=== PATIENT | female | born 1950 | race Caucasian/White ===

== ENCOUNTER 2022-08-29 13:20 | Inpatient (IN) | payer SELFPAY ==
[~2022-08-29] VITALS: Ht 154.9 cm; Wt 78.0 kg
--- NOTE | 2022-08-29 13:45 | NUR ---
BIBDAUGHTER C/O SOB X2HOUR WITH LEFT JAW PAIN (SWELLING NOTED) NO TRAUMA. AMBULATORY, PLACED IN BED, AAOX4, BREATHING EVEN AND UNLABORED SATURATING AT 96%RA.
--- NOTE | 2022-08-29 13:59 | NUR ---
MOVE SHEET SUBMITTED.
--- NOTE | 2022-08-29 14:24 | NUR ---
BLOOD DRAWN AND SWAB FOR COVID19 SENT TO LAB
[2022-08-29] MEDS ORDERED: NIFE10CA2 PO (14:39)
[2022-08-29 14:46] LABS: BASOPHILS % (AUTO) 0.3 % (0.0-2.0); EOSINOPHILS % (AUTO) 0.1 % (0.0-6.0); HEMATOCRIT 41 % (33-45); HEMOGLOBIN 13.5 g/dL (11.5-14.8); LYMPHOCYTES # (AUTO) 1.5 K/uL (0.8-4.8); LYMPHOCYTES % (AUTO) 15.2 % (20.0-44.0); MEAN CORPUSCULAR HGB CONC 33 g/dl (31.0-36.0); MEAN CORPUSCULAR VOLUME 86 fL (82-100); MONOCYTES # (AUTO) 0.9 K/uL (0.1-1.30); MONOCYTES % (AUTO) 8.6 % (2.0-12.0); NEUTROPHILS # (AUTO) 7.6 K/uL (1.8-8.9); NEUTROPHILS % (AUTO) 75.8 % (43.0-81.0); PLATELET COUNT (AUTO) 201 K/uL (150-450); RED BLOOD CELL COUNT(AUTO) 4.77 MIL/uL (4.0-5.2)
[2022-08-29] MEDS ORDERED: MORPHINE SULFATE INJ 2 MG/ML DISP.SYRIN IV ONE (15:00)
[2022-08-29] MEDS ORDERED: MORPHINE SULFATE INJ 2 MG/ML DISP.SYRIN ONE (15:02)
--- NOTE | 2022-08-29 15:17 | NUR ---
TROPONIN 422, DR CHEW MADE AWARE
--- NOTE | 2022-08-29 15:21 | NUR ---
PER DR CHEW, OK FOR PT TO BE TAKEN TO RADIOLOGY FOR CTA; RADIOLOGY MADE AWARE
--- NOTE | 2022-08-29 15:35 | NUR ---
PT TAKEN TO RADIOLOGY FOR CT
[2022-08-29] MEDS ORDERED: CT SWABBABLE VALVE TRANS SET 1 EA INFUS.SET MC ONE (15:37)
[2022-08-29] MEDS ORDERED: IOHEXOL-350 100 ML VIAL IV ONE (15:37)
[2022-08-29] MEDS ORDERED: IV NS 0.9% 250 ML IV ONE (15:37)
[2022-08-29 15:42] LABS: ALANINE AMINOTRANSFERASE 19 U/L (12-78); ALBUMIN 3.9 g/dL (3.4-5.0); ALKALINE PHOSPHATASE 64 U/L (46-116); ASPARTATE AMINOTRANSFERASE 18 U/L (15-37); BILIRUBIN,DIRECT 0.2 mg/dL (0.0-0.2); BILIRUBIN,TOTAL 0.7 mg/dL (0.2-1.0); CALCIUM, SERUM 9.4 mg/dL (8.5-10.1); CARBON DIOXIDE 27 mmol/L (21-32); CHLORIDE 104 mmol/L (98-107); CREATININE 0.8 mg/dL (0.6-1.3); GLUCOSE 90 mg/dL (74-106); POTASSIUM 3.5 mmol/L (3.5-5.1); SODIUM SERUM 140 mmol/L (136-145); TOTAL PROTEIN, SERUM 7.9 g/dL (6.4-8.2); UREA NITROGEN, BLOOD 17 mg/dL (7-18)
[2022-08-29] MEDS ORDERED: ENOXAPARIN SODIUM 60 MG/0.6 ML DISP.SYRIN SQ ONE (16:30)
[2022-08-29] MEDS ORDERED: ASPIRIN 325 MG TABLET PO ONE (16:30)
--- NOTE | 2022-08-29 16:45 | NUR ---
[facility] CALLED ON [facility].
[2022-08-29] MEDS ORDERED: ASPIRIN 325 MG TABLET ONE ×2 (16:58→16:59)
[2022-08-29] MEDS ORDERED: NIFEdipine (10MG) 10 MG CAPSULE PO ONE ×2 (16:58→17:00)
[2022-08-29] MEDS ORDERED: ENOXAPARIN SODIUM 80 MG/0.8 ML DISP.SYRIN SQ ONE ×2 (16:58→17:00)
[2022-08-29] MEDS ORDERED: NITROGLYCERIN 0.4 MG/TAB BOTTLE ONE (16:58)
[2022-08-29] MEDS ORDERED: NITROGLYCERIN 0.4 MG/TAB BOTTLE SL ONE (17:00)
--- NOTE | 2022-08-29 17:07 | NUR ---
GOT BED 322-1
--- NOTE | 2022-08-29 17:22 | NUR ---
REPORT GIVEN TO ELENI SURESH ROOM 322-1 FOR AVA
[2022-08-29] MEDS ORDERED: MORPHINE SULFATE INJ 4 MG/ML DISP.SYRIN IV PRN (17:30)
[2022-08-29] MEDS ORDERED: ONDANSETRON HCL/PF 4 MG/2 ML VIAL IVP PRN (17:30)
[2022-08-29] MEDS ORDERED: ACETAMINOPHEN 325 MG TABLET PO PRN (17:30)
[2022-08-29] MEDS ORDERED: MAG HYDROX/AL HYDROX/SIMETH 30 ML UDC PO PRN (17:30)
[2022-08-29] MEDS ORDERED: HYDROCODONE/APAP 5/325MG TABLET PO PRN (17:30)
[2022-08-29] MEDS ORDERED: Z GUARD REMEDY 4 OZ OINT TP PRN (17:30)
[2022-08-29] MEDS ORDERED: TEMAZEPAM 15 MG CAPSULE PO PRN (17:30)
[2022-08-29] MEDS ORDERED: MAGNESIUM HYDROXIDE 30 ML UDC PO PRN (17:30)
[2022-08-29] MEDS: IV NS 0.9% 1,000 ML IV PRN (18:10)
[2022-08-29 18:15] VITALS: BP 138/79
--- NOTE | 2022-08-29 18:15 | NUR ---
RN NOTES RECEIVED PATIENT FROM ER ENDORSED BY KERWIN MARTINEZ VIA STRETCHER. PATIENT IS AWAKE AND A/O X4. ON O2 AT 2LPM VIA NASAL CANNULA TOLERATING WELL. NO SOB NOTED. NOT IN DISTRESS. ON TELE MONITOR CURRENTLY READING SINUS TACHYCARDIA AT 102BPM WITH PACs. WITH IV ACCESS AT THE LEFT AC G20 AND STARTED IVF NS AT 75ML/HR INFUSING WELL. SKIN IS INTACT. SAFETY MEASURES IN PLACED. CALL LIGHT WITHIN REACH. BED ON LOWEST LOCKED POSITION, SIDE RAILS UP X2. WILL ENDORSE TO NEXT SHIFT FOR AVA..
[2022-08-29] MEDS ORDERED: CEFEPIME 1 GM in IV D5W 50 ML IV SCH (19:30)
--- NOTE | 2022-08-29 19:49 | NUR ---
RN OPENING NOTES RECEIVED PT IN BED, AWAKE, ON CELL PHONE. AOx4, PER REPORT. AZERBAIJANI SPEAKING. ON RA AND TOLERATING WELL. NO SOB NOTED. NO S/SX OF RESPIRATORY DISTRESS NOTED. IV ACCESS IN LAC #20G RUNNING NS @75 ML/HR. SAFETY PRECAUTIONS IN PLACE: BED IN LOWEST, LOCKED POSITION, SIDERAILS UPx2, AND BRAKES ON. TABLE AND CALL LIGHT WITHIN REACH. ALL NEEDS MET AT THIS TIME.
[2022-08-29 20:00] VITALS: BP 109/75
[2022-08-29] MEDS ORDERED: CLINDAMYCIN PHOSPHATE IV 600 MG/4 ML VIAL IV SCH (21:00)
[2022-08-29] MEDS: CEFEPIME 2 GM in IV D5W 100 ML IV SCH (21:05)
--- NOTE | 2022-08-29 21:10 | NUR ---
RN NOTES ADMINISTERED MORPHINE FOR PAIN PER PT REQUEST. ASSESSED VIA FLACC SCALE 03/23. VS WNL.
[2022-08-29] MEDS: CLINDAMYCIN 600 MG in IV D5W 50 ML IV SCH (21:59)
[2022-08-30] VITALS: BP 121/63
[2022-08-30 04:00] VITALS: BP 149/76
[2022-08-30] MEDS: IV NS 0.9% 1,000 ML IV PRN (05:05)
[2022-08-30] MEDS: CLINDAMYCIN 600 MG in IV D5W 50 ML IV SCH (05:05)
--- NOTE | 2022-08-30 06:34 | NUR ---
RN CLOSING NOTES PT IN BED, ASLEEP, AWAKENS TO VERBAL STIMULI. AOx4, PER REPORT. ALGERIAN SPEAKING. ON RA AND TOLERATING WELL. NO SOB NOTED. NO S/SX OF RESPIRATORY DISTRESS NOTED. IV ACCESS IN LAC #20G RUNNING NS @75 ML/HR AND R HAND #20G. ALL ORDERS CARRIED OUT. ALL NEEDS MET. PT KEPT CLEAN AND DRY. SAFETY PRECAUTIONS IN PLACE: BED IN LOWEST, LOCKED POSITION, SIDERAILS UPx2, AND BRAKES ON. TABLE AND CALL LIGHT WITHIN REACH. WILL ENDORSE TO ONCOMING SHIFT FOR AVA.
[2022-08-30 06:44] LABS: BASOPHILS % (AUTO) 0.2 % (0.0-2.0); EOSINOPHILS % (AUTO) 0.1 % (0.0-6.0); HEMATOCRIT 37 % (33-45); HEMOGLOBIN 12.3 g/dL (11.5-14.8); LYMPHOCYTES # (AUTO) 1.2 K/uL (0.8-4.8); LYMPHOCYTES % (AUTO) 10.1 % (20.0-44.0); MEAN CORPUSCULAR HGB CONC 33 g/dl (31.0-36.0); MEAN CORPUSCULAR VOLUME 85 fL (82-100); MONOCYTES # (AUTO) 1.1 K/uL (0.1-1.30); MONOCYTES % (AUTO) 8.8 % (2.0-12.0); NEUTROPHILS # (AUTO) 9.8 K/uL (1.8-8.9); NEUTROPHILS % (AUTO) 80.8 % (43.0-81.0); PLATELET COUNT (AUTO) 184 K/uL (150-450); RED BLOOD CELL COUNT(AUTO) 4.34 MIL/uL (4.0-5.2); WHITE BLOOD COUNT (AUTO) 12.1 K/uL (4.3-11.0)
[2022-08-30 07:02] LABS: CALCIUM, SERUM 8.6 mg/dL (8.5-10.1); CREATININE 0.6 mg/dL (0.6-1.3); MAGNESIUM 2.1 mg/dL (1.8-2.4); PHOSPHORUS 2.9 mg/dL (2.5-4.9); POTASSIUM 2.9 mmol/L (3.5-5.1)
--- NOTE | 2022-08-30 07:15 | NUR ---
RN OPENING NOTES RECEIVED PT IN BED, AWAKE. AOx4, PER REPORT. VIETNAMESE SPEAKING. ON RA AND TOLERATING WELL. NO SOB NOTED. NO COMPLAINS OF PAIN. NO S/SX OF RESPIRATORY DISTRESS NOTED. IV ACCESS IN LAC #20G RUNNING NS @75 ML/HR. SAFETY PRECAUTIONS IN PLACE: BED IN LOWEST, LOCKED POSITION, SIDE RAILS UPx2, AND BRAKES ON. TABLE AND CALL LIGHT WITHIN REACH. WILL CONTINUE TO MONITOR.
[2022-08-30] MEDS: PANTOPRAZOLE 40 MG TABLET.DR PO SCH (07:30)
--- NOTE | 2022-08-30 07:30 | NUR ---
RN NOTE RECEIVED CRITICAL LAB VALUE OF TROPONIN OF 2529. NOTIFIED DR ALONZO. WILL CONTINUE TO MONITOR PATIENT.
[2022-08-30 07:51] LABS: THYROID STIMULATING HORMONE 0.301 uIU/mL (0.358-3.74)
[2022-08-30 08:00] VITALS: BP 62/32
[2022-08-30] MEDS ORDERED: ENOXAPARIN SODIUM 40 MG/0.4 ML DISP.SYRIN SQ SCH (09:00)
[2022-08-30] MEDS: ATORVASTATIN 40 MG TABLET PO SCH (09:00)
[2022-08-30] MEDS: ASPIRIN 81 MG TAB.CHEW PO SCH (09:00)
[2022-08-30] MEDS: ENOXAPARIN SODIUM 80 MG/0.8 ML DISP.SYRIN SQ SCH ×2 (09:23→20:19)
[2022-08-30] MEDS: POTASSIUM CL. PREMIX PERIPHER. 50 ML IV SCH ×5 (09:27→14:27)
[2022-08-30 11:52] VITALS: BP 143/91
[2022-08-30] MEDS: METOPROLOL TARTRATE 50 MG TABLET PO SCH ×3 (12:00→23:24)
[2022-08-30] MEDS: CLINDAMYCIN 900 MG in IV D5W 50 ML IV SCH ×2 (12:57→21:36)
[2022-08-30] MEDS ORDERED: NITROGLYCERIN 0.4 MG/TAB BOTTLE SL ONE (13:30)
[2022-08-30] MEDS ORDERED: IOHEXOL-350 100 ML VIAL IV ONE (13:31)
[2022-08-30] MEDS ORDERED: CT SWABBABLE VALVE TRANS SET 1 EA INFUS.SET MC ONE (13:31)
[2022-08-30] MEDS ORDERED: IV NS 0.9% 250 ML IV ONE (13:31)
[2022-08-30] MEDS ORDERED: METOPROLOL TARTRATE INJ 5 MG/5 ML AMPUL ONE (13:31)
[2022-08-30] MEDS ORDERED: NITROGLYCERIN 0.4 MG/TAB BOTTLE ONE (13:32)
[2022-08-30] MEDS: METOPROLOL TARTRATE INJ 5 MG/5 ML AMPUL IVP PRN ×2 (13:40→13:45)
[2022-08-30 16:00] VITALS: BP 150/78
[2022-08-30] MEDS ORDERED: RXENO SQ (18:13)
[2022-08-30] MEDS ORDERED: ASPI-1169 PO (18:13)
[2022-08-30] MEDS ORDERED: DEXA4VIA17 IV (18:13)
[2022-08-30] MEDS ORDERED: ATOR40TA PO (18:13)
[2022-08-30] MEDS ORDERED: ENOX80DI SQ (18:13)
[2022-08-30] MEDS ORDERED: [UNRECOGNIZED DRUG - CODE] IV (18:13)
[2022-08-30] MEDS ORDERED: CEFE2FRO IV (18:13)
[2022-08-30] MEDS ORDERED: CLIN900P10 IV (18:13)
--- NOTE | 2022-08-30 18:35 | NUR ---
REMOTE RUBY ON RAILS DEVELOPER CLOSING NOTES PT IN BED, AWAKE, FAMILIES BY BEDSIDE. AOx4. DIVEHI SPEAKING. ON RA AND TOLERATING WELL. NO SOB NOTED. NO S/SX OF RESPIRATORY DISTRESS NOTED. IV ACCESS IN LAC #20G RUNNING NS @75 ML/HR AND R HAND #20G.PT ON EXTERNAL PERSONAL SERVICE REPRESENTATIVE READING SR WITH PVC+PAC @ 50BPM. ALL ORDERS CARRIED OUT. PT HAS HAD CTA. ALL NEEDS MET. PT KEPT CLEAN AND DRY. SAFETY PRECAUTIONS IN PLACE: BED IN LOWEST, LOCKED POSITION, SIDERAILS UPx2, AND BRAKES ON. TABLE AND CALL LIGHT WITHIN REACH. WILL ENDORSE TO ONCOMING SHIFT FOR AVA.
--- NOTE | 2022-08-30 19:42 | NUR ---
RN OPENING NOTES RECEIVED PT IN BED, AWAKE. AOx4, PER REPORT. [place] ISLANDER SPEAKING. ON RA AND TOLERATING WELL. NO SOB NOTED. NO S/SX OF RESPIRATORY DISTRESS NOTED. IV ACCESS IN LAC #20G RUNNING NS @75 ML/HR AND R HAND #20G. SAFETY PRECAUTIONS IN PLACE: BED IN LOWEST, LOCKED POSITION, SIDERAILS UPx2, AND BRAKES ON. TABLE AND CALL LIGHT WITHIN REACH. ALL NEEDS MET AT THIS TIME.
[2022-08-30] MEDS: CEFEPIME 2 GM in IV D5W 100 ML IV SCH (20:10)
[2022-08-30] MEDS: DEXAMETHASONE SOD PHOSPHATE 4 MG/ML VIAL IV SCH (20:15)
[2022-08-30 20:46] VITALS: BP 141/66
[2022-08-31 00:02] VITALS: BP 158/89
[2022-08-31] MEDS: IV NS 0.9% 1,000 ML IV PRN (03:13)
[2022-08-31 04:22] VITALS: BP 163/76
[2022-08-31] MEDS: CLINDAMYCIN 900 MG in IV D5W 50 ML IV SCH ×2 (04:44→13:17)
[2022-08-31] MEDS: METOPROLOL TARTRATE 50 MG TABLET PO SCH ×3 (05:28→17:08)
[2022-08-31 05:54] LABS: BASOPHILS % (AUTO) 0.1 % (0.0-2.0); HEMATOCRIT 39 % (33-45); HEMOGLOBIN 12.8 g/dL (11.5-14.8); LYMPHOCYTES # (AUTO) 0.8 K/uL (0.8-4.8); LYMPHOCYTES % (AUTO) 17.1 % (20.0-44.0); MEAN CORPUSCULAR HGB CONC 33 g/dl (31.0-36.0); MEAN CORPUSCULAR VOLUME 85 fL (82-100); MONOCYTES # (AUTO) 0.1 K/uL (0.1-1.30); MONOCYTES % (AUTO) 1.4 % (2.0-12.0); NEUTROPHILS % (AUTO) 81.4 % (43.0-81.0); PLATELET COUNT (AUTO) 192 K/uL (150-450); RED BLOOD CELL COUNT(AUTO) 4.52 MIL/uL (4.0-5.2); WHITE BLOOD COUNT (AUTO) 4.9 K/uL (4.3-11.0)
[2022-08-31 06:13] LABS: ALANINE AMINOTRANSFERASE 22 U/L (12-78); ALBUMIN 2.8 g/dL (3.4-5.0); ALKALINE PHOSPHATASE 74 U/L (46-116); ASPARTATE AMINOTRANSFERASE 22 U/L (15-37); BILIRUBIN,TOTAL 0.6 mg/dL (0.2-1.0); CALCIUM, SERUM 8.8 mg/dL (8.5-10.1); CARBON DIOXIDE 19 mmol/L (21-32); CHLORIDE 107 mmol/L (98-107); CREATININE 0.6 mg/dL (0.6-1.3); GLUCOSE 164 mg/dL (74-106); MAGNESIUM 2.4 mg/dL (1.8-2.4); PHOSPHORUS 4.3 mg/dL (2.5-4.9); POTASSIUM 3.6 mmol/L (3.5-5.1); SODIUM SERUM 138 mmol/L (136-145); TOTAL PROTEIN, SERUM 6.8 g/dL (6.4-8.2); UREA NITROGEN, BLOOD 16 mg/dL (7-18)
--- NOTE | 2022-08-31 06:55 | NUR ---
RN NOTES RECEIVED CRITICAL LAB VALUE FOR TROPONIN OF 3231. DR. ALONZO MADE AWARE. NO NEW ORDERS RECEIVED AT THIS TIME.
--- NOTE | 2022-08-31 07:43 | NUR ---
RN OPENING NOTES Pt received on bed, asleep, A/O x 4. On RA with no signs of acute distress. With IV access at LAC #20g with ongoing NS at 75 ml/hr dry, intact and infusing well. With SL at R hand #20g, dry, intact and flushed. On external maintenance and operations supervisor at SR. No c/o pain and discomfort. Safety and comfort measures in place: bed on the lowest position, bed alarm and tray table within reach, hob elevated, side rails x2. Maintained on NPO.
[2022-08-31 08:05] VITALS: BP 151/88
[2022-08-31] MEDS ORDERED: NITROGLYCERIN 30 GM TUBE TP SCH (09:00)
[2022-08-31] MEDS ORDERED: DEXAMETHASONE SOD PHOSPHATE 4 MG/ML VIAL IV SCH (09:00)
[2022-08-31] MEDS: ENOXAPARIN SODIUM 80 MG/0.8 ML DISP.SYRIN SQ SCH (09:47)
[2022-08-31] MEDS: DEXAMETHASONE SOD PHOSPHATE 4 MG/ML VIAL IV SCH (09:47)
[2022-08-31] MEDS: PANTOPRAZOLE 40 MG TABLET.DR PO SCH (10:15)
[2022-08-31] MEDS: ATORVASTATIN 40 MG TABLET PO SCH (10:16)
[2022-08-31] MEDS: ASPIRIN 81 MG TAB.CHEW PO SCH (10:16)
--- NOTE | 2022-08-31 10:32 | NUR ---
FARM ADVISER NOTES PT SEEN AND EXAMINED BY DALE SPEECH/SWALLOW THERAPIST, PT COMPLAINS OF PAIN ON SWALLOWING, PT SPOKE WITH HEALTH COMMISSIONER NINO, PT AGREED ON TAKING HER MEDICATION CRUSHED WITH APPLESAUCE, PAIN MEDS GIVEN, WILL CONTINUE TO MONITOR.
[2022-08-31 15:59] VITALS: BP 157/67
[2022-08-31 17:08] VITALS: BP 157/67
--- NOTE | 2022-08-31 18:52 | NUR ---
SENIOR NET SOFTWARE ENGINEER NOTES PT IN BED, RESTING, NO COMPLAINT OF CHEST PAIN, NOT IN DISTRESS, DUE MEDICATIONS GIVEN SCHEDULED, IV FLUIDS INFUSING WELL, STILL WITH SWELLING TO THE LEFT SIDE OF JAW/NECK AREA, NO SOB, PT TOLERATES SOFT FOOD WITH SUPERVISION, ASPIRATION PRECAUTIONS OBSERVED, PT ABLE TO AMBULATE TO THE BATHROOM WITH STEADY GAIT, DISCHARGE/TRANSFER ORDER GIVEN BY DR. KESSLER, DISCHARGE AND MEDICATION INSTRUCTIONS PROVIDED TO PT AND FAMILY, VERBALIZED UNDERSTANDING, TRANSFER CONSENTS SIGNED, BELONGINGS ACCOUNTED FOR, REPORT GIVEN TO TADEO SURESH OF [facility], PICKED UP BY 2 AMBULANCE PERSONNEL, LEFT VIA GUERNEY IN STABLE CONDITION.
== END 2022-08-31 18:50 | disposition short-term general hospital (02) | DRG 157 ==
LOC: ER 13:28 → TELE 17:12
PROVIDERS: ADMIT Nurse Practitioner Acute Care; ATTEND Nurse Practitioner Acute Care
DX: K12.2 Cellulitis and abscess of mouth (principal); I21.A1 Myocardial infarction type 2; I77.810 Thoracic aortic ectasia; E66.9 Obesity, unspecified; Z20.822 Contact with and (suspected) exposure to COVID-19; K11.20 Sialoadenitis, unspecified; I10 Essential (primary) hypertension; Z79.899 Other long term (current) drug therapy; E04.2 Nontoxic multinodular goiter; E87.6 Hypokalemia; I48.91 Unspecified atrial fibrillation; Z68.32 Body mass index [BMI] 32.0-32.9, adult
CPT/HCPCS: 36415; 70486-TC; 71045-TC; 75574; 76536-TC; 80048-TC; 80053-TC; 80061-TC; 80076-TC; 83735-TC; 83880; 84100-TC; 84439-TC; 84443-TC; 84480; 84484-TC; 85025-TC; 85652-TC; 87081-TC; 92526; 92611-TC; 93307-TC; C9803; G0378; J0692; J1100; J1650; J2270; J3480; J3490; J7030; J7050; J7060; Q9967